=== PATIENT | male | born 1970 | race Caucasian/White ===

== ENCOUNTER → 2025-02-04 15:51 | Outpatient (REF) | payer BC, SELFPAY | LOC: RAD 15:51 | PROVIDERS: ATTENDING PHYSICIAN Family Medicine | DX: M54.16 Radiculopathy, lumbar region (principal) | CPT/HCPCS: 72110 ==

== ENCOUNTER → 2025-06-04 20:05 | Outpatient (REF) | payer BC, SELFPAY | LOC: PAVMRI 20:05 | PROVIDERS: ATTENDING PHYSICIAN Specialist; FAMILY PHYSICIAN Family Medicine | DX: M43.06 Spondylolysis, lumbar region (principal) | CPT/HCPCS: 72148 ==